=== PATIENT | male | born 1980 | race Caucasian/White ===

== ENCOUNTER 2017-10-10 05:28 | Emergency (ER) | payer BC, OTHER ==
[~2017-10-10] VITALS: Ht 167.6 cm; Wt 118.9 kg
[~2017-10-10 05:28] MED LIST: ALBUAER19 INH; DIPH25CA5 PO; RANI150T3 PO
[2017-10-10 05:33] VITALS: BP 152/100; PULSE 99; TEMP 37.2; Ht 167.6 cm; Wt 118.9 kg
[2017-10-10] MEDS ORDERED: DEXAMETHASONE **PF** INJ 10 MG/ML VIAL PO ONE (05:45)
[2017-10-10] MEDS ORDERED: AZITHROMYCIN 250 MG TAB PO STA (05:47)
[2017-10-10] MEDS ORDERED: AZIT250T PO (05:50)
[2017-10-10] MEDS ORDERED: PRED50TA PO (05:50)
[2017-10-10 05:51] VITALS: O2SAT 98
--- NOTE | 2017-10-10 05:53 | EMERGENCY ROOM VISIT NOTE ---
History First contact with patient: 05:34 Chief Complaint: SORETHROAT Stated Complaint: PAIN/SWELLING IN BACK OF THROAT History of Present Illness The patient is a 37 year old male who presents to the Emergency Room with complaints of swelling to the back of his throat with sinus congestion for the past day who has had occasional flares of his reflux. No history of similar symptoms in the past. Patient denies chest pain, dyspnea, headache, neck stiffness, cough, abdominal pain, vomiting, diarrhea. No new foods soaps or detergents. Review of Systems See HPI for pertinent positives & negatives. A total of 10 systems reviewed and were otherwise negative. Past Medical/Surgical History Medical Problems: (1) Asthma (2) Esophageal Reflux Family History Heart attack Heart disease Social History Smoking Status: Never Smoker Alcohol Use: none Marital Status: Occupation Status: employed Current/Historical Medications Scheduled Azithromycin (Zithromax), 250 MG PO DAILY Diphenhydramine Hcl (Benadryl), 25 MG PO DAILY Prednisone (Prednisone), 50 MG PO DAILY Ranitidine Hcl (Zantac), 150 MG PO DAILY Scheduled PRN Albuterol Inhaler (Ventolin Inhaler), 2 PUFFS INH Q4 PRN Physical Exam Vital Signs Date Time Temp Pulse Resp B/P (MAP) Pulse Ox O2 Delivery O2 Flow Rate FiO2 10/10/17 05:33 37.2 99 18 152/100 96 Room Air Physical Exam VITALS: Vitals are noted on the nurse's note and reviewed by myself. Vital signs hypertensive. GENERAL: Pleasant male speaking in full sentences, in no acute distress, nondiaphoretic, well-developed well-nourished. SKIN: The skin was without rashes, erythema, edema, or bruising. There is no tenting of the skin. Capillary reflex less than 2 seconds. HEAD: Normocephalic atraumatic. EARS: External auditory canals clear, tympanic membranes pearly lind without erythema or effusion bilaterally. EYES: Pupils equal round and reactive to light and accommodation. Conjunctivae without injection, sclerae without icterus. Extraocular movements intact. NOSE: Patent, turbinates without inflammation or discharge. No sinus tenderness. MOUTH: Mucous membranes moist. . Pharynx with erythema without exudate. Uvula is erythematous and edematous and midline. Airway patent. Tongue does not deviate. NECK: Supple without nuchal rigidity. No lymphadenopathy. No thyromegaly. Cervical spine is nontender. No JVD. No meningeal signs HEART: Regular rate and rhythm without murmurs gallops or rubs. LUNGS: Clear to auscultation bilaterally without wheezes, rales or rhonchi. No dullness to percussion. No retractions or accessory muscle use. ABDOMEN: Positive bowel sounds x 4. Normal tympanic percussion. Soft, nontender, without masses or organomegaly. Amanda sign negative. No guarding or rebound tenderness. MUSCULOSKELETAL: No muscle atrophy, erythema, or edema noted. NEURO: Patient was alert and oriented to person place and time. Normal sensation to light and sharp touch. No focal neurological deficits. Medical Decision & Procedures ED Course Prior records/ancillary studies reviewed. Triage Nursing notes reviewed. Additional history obtained from family The patient's history was concerning for a sore throat. Differential diagnosis: Etiologies such as uvulitis, viral syndrome, tonsillitis, streptococcal pharyngitis, mononucleosis, peritonsillar abscess, retropharyngeal abscess, otitis, pneumonia, influenza, as well as others were entertained. ER treatment provided: Decadron, Zithromax On reassessment the patient felt better. Diagnostics interpreted by me: Deferred This appears to be consistent with uvulitis. Patient had no signs of airway compromise. He is well-appearing. He is tolerating fluids. He was advised to take medications as directed, stay well-hydrated, follow-up family care in a few days or here in the ER sooner for difficulty swelling, chest pain, His, worsening signs or symptoms or as needed. Patient and no signs of abscess. He is maintaining his own secretions. By the evaluation outlined above emergent etiologies such as peritonsillar abscess, retropharyngeal abscess , otitis, pneumonia, meningitis, urinary tract infection, sepsis, bacteremia, as well as others were deemed relatively unlikely. The pt informed about the findings as listed above. All questions were answered and pleased with the treatment. Return instructions were outlined and the patient was discharged in stable condition. Outpatient prescription management: Prednisone, Zithromax Referral: The patient was referred back to their primary care physician for follow-up in 2 to 3 days for a recheck of the current condition. Medical Decision As above Medication Reconcilliation Current Medication List: was personally reviewed by me Blood Pressure Screening Patient's blood pressure: Elevated blood pressure Blood pressure disposition: Elevated BP felt to be situational Impression Primary Impression: Uvulitis Departure Information Dispostion Home / Self-Care Condition GOOD Prescriptions Azithromycin (Zithromax) 250 Mg Tab 250 MG PO DAILY for 4 Days, #4 TAB Prov: Brianne Emery PA-C 10/10/17 Prednisone (Prednisone) 50 Mg Tab 50 MG PO DAILY for 4 Days, #4 TAB Prov: Brianne Emery PA-C 10/10/17 Forms HOME CARE DOCUMENTATION FORM, School Instructions, Return To School: 2 days IMPORTANT VISIT INFORMATION Patient Instructions My [facility], ED Uvulitis Additional Instructions Prednisone 50mg: Once daily until the prescription is finished. It is best to take this earlier in the day as some patients note occasional difficulty falling asleep when taken in the late evening. Azithromycin(Zithromax) 250mg: Take one a day for 4 additional days. All antibiotics can cause diarrhea. If this occurs and you feel worse or it does not resolve in 1-2 days follow up with your doctor or return to the Emergency Department as this could be signs of serious underlying problems. Any medication can cause an allergic reaction, stop the pills immediately and return to the ER for rash, hives, breathing difficulties, or swelling. Acetaminophen(Tylenol) may be used for fever or pain. Use 1000mg every six hours as needed. Avoid using more than 3000mg in a 24 hour period. (AND/OR) Ibuprofen(Motrin, Advil) may be used for fever or pain. Use 600mg every six hours as needed. Take with food. Avoid using more than 2400mg in a 24 hour period. Do not use 2400mg per day for more than three consecutive days without physician direction. Prolonged inappropriate use can lead to stomach upset or ulcers. Rest and drink plenty of fluids. Avoid smoke/smoking, fumes, dust, or any triggers in the past that may have affected your breathing. Continue current medications. Return to the ER for difficulty swallowing, chest pain, difficulty breathing, fevers, vomiting, worsening of your condition, or as needed. Follow up with your primary physician this week for a recheck of your current condition. School Instructions Return To School: 2 days
[2017-10-10] MEDS ORDERED: IBUP-1459 PO (06:03)
== END 2017-10-10 06:05 | disposition home or self-care (01) ==
LOC: C.EDB 05:30 → C.EDA 06:05
DX: K12.2 Cellulitis and abscess of mouth (principal); J45.909 Unspecified asthma, uncomplicated; K21.9 Gastro-esophageal reflux disease without esophagitis; Z82.49 Family history of ischemic heart disease and other diseases of the circulatory system